=== PATIENT | female | born 1935 | race Caucasian/White ===

== ENCOUNTER 2017-07-07 08:21 | Emergency (ER) | payer MEDICARE ==
[~2017-07-07] VITALS: Ht 165.1 cm; Wt 80.0 kg
[2017-07-07] MEDS ORDERED: XARELTO10 MG PO (08:30)
[2017-07-07] MEDS ORDERED: METOPROLOL SUC200 MG PO (08:31)
[2017-07-07] MEDS ORDERED: PRAVASTATIN SOD20 MG PO (08:32)
[2017-07-07] MEDS ORDERED: SPIRONOLACTONE25 MG PO (08:32)
[2017-07-07] MEDS ORDERED: ASPIRIN81 MG PO (08:32)
[2017-07-07] MEDS ORDERED: FLEXERIL PO (10:49)
[2017-07-07] MEDS ORDERED: ULTRAM50 M1 PO (10:49)
[2017-07-07 10:52] VITALS: BP 143/70
== END 2017-07-07 11:02 | disposition home or self-care (01) ==
LOC: ED 08:21
DX: M47.817 Spondylosis without myelopathy or radiculopathy, lumbosacral region (principal); M54.31 Sciatica, right side